=== PATIENT | female | born 1980 | race Caucasian/White ===

== ENCOUNTER 2021-04-06 22:11 | Emergency (ER) | payer OTHER ==
[~2021-04-06] VITALS: Ht 160 cm; Wt 98.3 kg
[2021-04-06] MEDS ORDERED: IV NORMAL SALINE 1,000ML 1,000 ML IV ONE (23:00)
--- NOTE | 2021-04-06 23:01 | PHYS DOC ---
Past History Additional Past Medical Histor: shalom, pre diabets, PTSD Past Surgical History: Cholecystectomy, Tubal ligation Additional Past Surgical Histo: carpal tunnel bialt, right leg surgery Alcohol Use: None General Adult EDM: Chief Complaint: SHORTNESS OF BREATH HPI: HPI: 41-year-old female presents with body aches, mild shortness of breath, a history of for COVID-19. She was fully vaccinated with the maternal vaccine. Her [id number] was just diagnosed with Covid. The patient has been around her. Patient has felt feverish at home but no fever in the ER. Review of Systems: Review of Systems: Constitutional: Fever, body aches. Eyes: Denies change in visual acuity HENT: Denies nasal congestion or sore throat Respiratory: shortness of breath Cardiovascular: Denies chest pain or edema GI: Denies abdominal pain, nausea, vomiting, bloody stools or diarrhea : Denies dysuria Musculoskeletal: Denies back pain or joint pain Integument: Denies rash Neurologic: Denies headache, focal weakness or sensory changes Endocrine: Denies polyuria or polydipsia Lymphatic: Denies swollen glands Psychiatric: Denies depression or anxiety Current Medications: Current Meds: Current Medications Medications (Trade) Dose Ordered Sig/Kathy Start Time Stop Time Status Last Admin Dose Admin Sodium Chloride 1,000 ml @ 1,000 mls/hr 1X ONCE 04/06/21 23:00 04/06/21 23:59 Allergies: Allergies: Allergies Coded Allergies Type Severity Reaction Last Updated Verified prednisone Allergy Unknown 04/06/21 Yes sulfamethoxazole Allergy Unknown 04/06/21 Yes trimethoprim Allergy Unknown 04/06/21 Yes Physical Exam: PE: Constitutional: Well developed, well nourished, morbidly obese, no acute distress, non-toxic appearance. [] HENT: Normocephalic, atraumatic, bilateral external ears normal, oropharynx moist, no oral exudates, nose normal. [] Eyes: PERRLA, EOMI, conjunctiva normal, no discharge. [] Neck: Normal range of motion, no tenderness, supple, no stridor. [] Cardiovascular: Heart rate regular rhythm, no murmur [] Lungs & Thorax: Bilateral breath sounds clear to auscultation [] Abdomen: Bowel sounds normal, soft, no tenderness, no masses, no pulsatile masses. [] Skin: Warm, dry, no erythema, no rash. [] Back: No tenderness, no CVA tenderness. [] Extremities: No tenderness, no cyanosis, no clubbing, ROM intact, no edema. [] Neurologic: Alert and oriented X 3, normal motor function, normal sensory function, no focal deficits noted. [] Psychologic: Affect normal, judgement normal, mood normal. [] Current Patient Data: Vital Signs: Vital Signs Date Time Temp Pulse Resp B/P (MAP) Pulse Ox O2 Delivery O2 Flow Rate FiO2 04/06/21 22:42 98.7 99 18 115/70 98 Room Air EKG: EKG: [] Radiology/Procedures: Radiology/Procedures: [] Impressions: INDICATION: Reason: SOB / Spl. Instructions: / History: COMPARISON: None. FINDINGS: Single view of chest obtained. No definite focal airspace consolidation. Left lung base is not well evaluated secondary to overlying cardiac silhouette obscuring. No definite consolidation elsewhere in the lungs. IMPRESSION: * No definite focal airspace consolidation Electronically signed by: Denise Moss MD (04/06/2021 11:43 PM) DESKTOP- [id number] DICTATED AND SIGNED BY: DENISE MOSS MD DATE: 04/06/212341 CC: LINDSAY BOBBY DO; KALEY SOLITARIO ~MTH0 0 Heart Score: C/O Chest Pain: N/A Risk Factors: Risk Factors: DM, Current or recent (<one month) smoker, HTN, HLP, family history of CAD, obesity. Risk Scores: Score 0 - 3: 2.5% MACE over next 6 weeks - Discharge Home Score 4 - 6: 20.3% MACE over next 6 weeks - Admit for Clinical Observation Score 7 - 10: 72.7% MACE over next 6 weeks - Early Invasive Strategies Course & Med Decision Making: Course & Med Decision Making Pertinent Labs and Imaging studies reviewed. (See chart for details) The patient's x-ray is negative for acute findings. Labs are unremarkable. The patient likely has COVID-19. I have advised supportive care and isolation from other people. She is stable for discharge at this time. If her condition worsens she will return to the emergency room. [] Dragon Disclaimer: Dragon Disclaimer: This electronic medical record was generated, in whole or in part, using a voice recognition dictation system. Departure Departure: Impression: Primary Impression: COVID-19 Disposition: 01 HOME / SELF CARE / HOMELESS Condition: STABLE Referrals: KALEY SOLITARIO (PCP) Additional Instructions: You have been tested for or diagnosed with COVID-19. It is an infection caused by a new type of coronavirus. COVID-19 will cause cold-like or mild flu symptoms in most. It can cause more severe symptoms like problems breathing in some. There is no treatment for COVID-19. The body will clear the infection over time. Self-care will help to ease discomfort. Steps to Take: Self-Care Rest as needed. Healthy habits may help you feel better. Steps include: Choose healthy foods including fruits and vegetables. Drink water throughout the day. Get plenty of sleep each night. If you smoke, try to quit. It may ease breathing. Avoid alcohol. Keep Others Healthy The virus can spread to others. Droplets are released every time you sneeze or cough. The droplets can get into the mouth, nose, or eyes of people near you and lead to infection. To lower the chances of spreading COVID-19 to others: Stay at home until your doctor has said it is safe to leave. If you tested positive this will mean staying isolated until both of the following are true: At least 7 days have passed since the start of illness. You are free of fever for at least 72 hours without the use of medicine. During this time: - Avoid public areas, events, or transportation. Do not return to work or school until your doctor has said it is safe to do so. - Call ahead if you need to go to a medical center. Let them know you may have COVID-19. It will help them guide you where to go. They may also ask you to wear a facemask when you come to the office. - If you call for emergency medical services, let them know you may have COVID- 19. While at home: - Try to avoid close contact with others. Stay about 6 feet away. - If possible, spend most of your time in a separate room from others. - Use a face mask if you will be in close contact with others such as sharing a room or vehicle. - Have someone wipe down common surfaces in the home. Use household cold press loader every day on areas like doorknobs, counters, or sinks. - Cough or sneeze into a tissue. Throw the tissue away right after use. If a tissue is not available, cough or sneeze into your elbow. - Wash your hands often. Wash them after sneezing or coughing. Use soap and water and wash for at least 20 seconds. Alcohol based hand fur cleaner can be used if soap and water is not available. - Do not prepare food for others. Avoid sharing personal items like forks, spoons, or toothbrushes. - Avoid close contact with pets while you are sick. There is no evidence of the virus passing to pets. This is a safety step until more is known about this virus. Isolation can be frustrating. Social interaction can help. Keep in touch with friends and family through phone and tech options. You can still interact with others in your home, just keep a safe distance of about 6 feet. Follow-up: Your doctors office will check in with you to see if there are any changes in your health. You may be asked to keep track of symptoms to share with them. They will also let you know when you are clear to be in public again. Problems to Look Out For: Contact your doctor if your recovery is not going as you expect. Get emergency care if you have problems such as: - Trouble breathing - Nonstop chest pain or pressure - Changes in awareness, confusion, or problems waking - Lips or face have bluish color - Worsening of symptoms If you think you have an emergency, call for emergency medical services right away. As taken from [facility] LINDSAY BOBBY DO Apr 06, 2021 23:01
[2021-04-06] MEDS ORDERED: KETOROLAC 15 MG/ML VIAL. IVP ONE (23:15)
[2021-04-06 23:42] LABS: CALCIUM 8.9 mg/dL (8.5-10.1); CREATININE 0.9 mg/dL (0.6-1.0); GFR 69.7; POTASSIUM 3.7 mmol/L (3.5-5.1)
--- NOTE | 2021-04-06 23:46 | RAD ---
INDICATION: Reason: SOB / Spl. Instructions: / History: COMPARISON: None. FINDINGS: Single view of chest obtained. No definite focal airspace consolidation. Left lung base is not well evaluated secondary to overlying cardiac silhouette obscuring. No definite consolidation elsewhere in the lungs. IMPRESSION: * No definite focal airspace consolidation Electronically signed by: Dayotn Moss MD (04/06/2021 11:43 PM) [id number]
[2021-04-06 23:50] LABS: ALBUMIN 3.4 g/dL (3.4-5.0); ALBUMIN/GLOBULIN RATIO 0.8 (1.0-1.7); TOTAL BILIRUBIN 0.3 mg/dL (0.2-1.0); TOTAL PROTEIN 7.8 g/dL (6.4-8.2)
[2021-04-07 00:16] LABS: BASO % 1 % (0-3); EOS # 0.1 x10^3/uL (0.0-0.7); EOS % 1 % (0-3); HEMATOCRIT 40.8 % (36.0-47.0); HEMOGLOBIN 14.1 g/dL (12.0-15.5); LYMPH # 1.2 x10^3/uL (1.0-4.8); LYMPH % 12 % (24-48); MEAN CORPUSCULAR HEMOGLOBIN 28 pg (25-35); MEAN CORPUSCULAR HGB CONC 35 g/dL (31-37); MEAN CORPUSCULAR VOLUME 80 fL (79-100); MONO # 0.4 x10^3/uL (0.0-1.1); MONO % 4 % (0-9); NEUT # 8.2 x10^3uL (1.8-7.7); NEUT % 83 % (31-73); PLATELET COUNT 105 x10^3/uL (140-400); RED BLOOD COUNT 5.08 x10^6/uL (3.50-5.40); RED CELL DISTRIBUTION WIDTH 13.7 % (11.5-14.5); WHITE BLOOD COUNT 9.9 x10^3/uL (4.0-11.0)
[2021-04-07 00:26] VITALS: BP 130/84
[2021-04-07 00:49] LABS: CLARITY,URINE CLEAR; COLOR,URINE YELLOW
[2021-04-07 00:50] LABS: BILIRUBIN,URINE NEG (NEG); GLUCOSE,URINE NEG (NEG); UROBILINOGEN,URINE 0.2 mg/dL (0.2 mg/dL)
[2021-04-07 00:51] LABS: BACTERIA,URINE FEW /HPF (0-FEW); NITRITE,URINE NEG (NEG); RBC,URINE OCC /HPF (0-2); SQUAMOUS EPITHELIAL CELL,UR OCC /LPF
== END 2021-04-07 00:40 | disposition home or self-care (01) ==
LOC: ER 22:11
DX: U07.1 COVID-19 (principal); Z88.8 Allergy status to other drugs, medicaments and biological substances; Z88.1 Allergy status to other antibiotic agents; Z88.2 Allergy status to sulfonamides
CPT/HCPCS: 36415; 71045; 80053; 81001; 85025; 87086; 96361; 96374; 99284; C9803; J1885; J7030; U0003

== ENCOUNTER 2021-07-01 21:07 | Emergency (ER) | payer SELFPAY ==
[~2021-07-01] VITALS: Ht 160 cm; Wt 96.6 kg
--- NOTE | 2021-07-01 21:40 | PHYS DOC ---
Past History Additional Past Medical Histor: shalom, pre diabets, PTSD (JOLEEN SMITH APRN) Past Surgical History: Cholecystectomy, Tubal ligation, Other Additional Past Surgical Histo: carpal tunnel bialt, right leg surgery (JOLEEN SMITH SPOT MACHINE OPERATOR) Alcohol Use: None Drug Use: Marijuana (JOLEEN SMITH APRN) General Adult EDM: Chief Complaint: DRUG ABUSE HPI: HPI: Patient is a 41-year-old female that presents today with back pain and not feeling well after eating a THC gummy. Patient states 30 minutes prior to arrival she had a gummy, she then had a hot flash with some low back pain and that since that time has not felt okay. Patient currently denies pain patient states she does not feel well. Patient states that she has not taken Gummies in the past. (JOLEEN SMITH APRN) Review of Systems: Review of Systems: Constitutional: Denies fever or chills Eyes: Denies change in visual acuity HENT: Denies nasal congestion or sore throat Respiratory: shortness of breath Cardiovascular: Denies chest pain or edema GI: Denies abdominal pain, nausea, vomiting, bloody stools or diarrhea : Denies dysuria Musculoskeletal: Denies back pain or joint pain Integument: Denies rash Neurologic: Denies headache, focal weakness or sensory changes Endocrine: Denies polyuria or polydipsia Lymphatic: Denies swollen glands Psychiatric: anxiety (JOLEEN SMITH APRN) Current Medications: Current Meds: levothyroxine Metformin Lexapro Buspar (JOLEEN SMITH APRN) Allergies: Allergies: Allergies Coded Allergies Type Severity Reaction Last Updated Verified prednisone Allergy Unknown 04/06/21 Yes sulfamethoxazole Allergy Unknown 04/06/21 Yes trimethoprim Allergy Unknown 04/06/21 Yes (JOLEEN SMITH SPOT MACHINE OPERATOR) Physical Exam: PE: Constitutional: Well developed, anxious [] HENT: Normocephalic, atraumatic, bilateral external ears normal, oropharynx moist, no oral exudates, nose normal. [] Eyes: pupil sluggish to react, equal round bilaterally, conjunctiva red, no discharge. [] Neck: Normal range of motion, no tenderness, supple, no stridor. [] Cardiovascular: tachycardic, no murmur [] Lungs & Thorax: Bilateral breath sounds clear to auscultation [] Abdomen: Bowel sounds normal, soft, no tenderness, no masses, no pulsatile masses. [] Skin: Warm, dry, no erythema, no rash. [] Back: No tenderness, no CVA tenderness. [] Extremities: No tenderness, no cyanosis, no clubbing, ROM intact, no edema. [] Neurologic: Alert and oriented X 3, normal motor function, normal sensory function, no focal deficits noted. [] Psychologic: Affect anxious, [] (JOLEEN SMITH APRN) Current Patient Data: Vital Signs: Vital Signs Date Time Temp Pulse Resp B/P (MAP) Pulse Ox O2 Delivery O2 Flow Rate FiO2 07/01/21 21:15 99.3 131 22 133/81 (98) 96 Room Air (JOLEEN SMITH APRN) EKG: EKG: EKG done at 2124 sinus tachycardia rate of 120-[address] Reese [] (JOLEEN SMITH SPOT MACHINE OPERATOR) Radiology/Procedures: Radiology/Procedures: [] (JOLEEN SMITH APRN) Heart Score: C/O Chest Pain: N/A Risk Factors: Risk Factors: DM, Current or recent (<one month) smoker, HTN, HLP, family history of CAD, obesity. Risk Scores: Score 0 - 3: 2.5% MACE over next 6 weeks - Discharge Home Score 4 - 6: 20.3% MACE over next 6 weeks - Admit for Clinical Observation Score 7 - 10: 72.7% MACE over next 6 weeks - Early Invasive Strategies (JOLEEN SMITH APRN) C/O Chest Pain: N/A HEART Score for Chest Pain: HEART Score for Chest Pain Response (Comments) Value History Moderately Suspicious 1 ECG Nonspecific Repolarizatio 1 Age < 45 0 Risk Factors 1 or 2 Risk Factors 1 Total 3 (MANUEL REESE MD) Course & Med Decision Making: Course & Med Decision Making Pertinent Labs and Imaging studies reviewed. (See chart for details) Patient placed on surveillance monitor per nursing staff sinus tachycardia no ectopy noted, patient appears very nervous. [address] Reese for checkup (JOLEEN SMITH APRN) Course & Med Decision Making See above charting for details by jese Smith change. Avoid further use of illicit drugs. Pressure increases. Follow-up primary care. Return if any concerns. Patient's symptoms improved requesting discharge after IV fluids. Impression: 1. Substance Abuse ( too many marijuana chewables/ gummies) (drug screen positive for narcotics and marijuana.) 2. Mild Leukocytosis 11.2 3. Mild Thrombocytopenia 129 (MANUEL REESE MD) Dragon Disclaimer: Dragon Disclaimer: This electronic medical record was generated, in whole or in part, using a voice recognition dictation system. (JOLEEN SMITH APRN) Departure Departure: Referrals: KALEY SOLITARIO (PCP) Attending Signature Attending Signature I have participated in the care of this patient and I have reviewed and agree with all pertinent clinical information above including history, exam, and recommendations. (MANUEL REESE MD) Attending Signature Attending Signature I have participated in the care of this patient and I have reviewed and agree with all pertinent clinical information above including history, exam, and recommendations. (MANUEL REESE MD) Attending Signature Attending Signature I have participated in the care of this patient and I have reviewed and agree wi th all pertinent clinical information above including history, exam, and recommendations. (MANUEL REESE MD) Dragon Disclaimer This chart was dictated in whole or in part using Voice Recognition software in a busy, high-work load, and often noisy Emergency Department environment. It may contain unintended and wholly unrecognized errors or omissions. (MANUEL REESE MD) JOLEEN SMITH APRN Jul 01, 2021 21:40 MANUEL REESE MD Jul 01, 2021 22:04
--- NOTE | 2021-07-01 21:40 | EKG ---
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
[2021-07-01 21:51] LABS: BASO # 0.1 x10^3/uL (0.0-0.2); BASO % 1 % (0-3); EOS # 0.3 x10^3/uL (0.0-0.7); EOS % 2 % (0-3); HEMATOCRIT 39.3 % (36.0-47.0); HEMOGLOBIN 13.1 g/dL (12.0-15.5); LYMPH # 4.6 x10^3/uL (1.0-4.8); LYMPH % 41 % (24-48); MEAN CORPUSCULAR HEMOGLOBIN 27 pg (25-35); MEAN CORPUSCULAR HGB CONC 33 g/dL (31-37); MEAN CORPUSCULAR VOLUME 82 fL (79-100); MONO # 0.6 x10^3/uL (0.0-1.1); MONO % 6 % (0-9); NEUT # 5.6 x10^3uL (1.8-7.7); NEUT % 50 % (31-73); PLATELET COUNT 129 x10^3/uL (140-400); RED CELL DISTRIBUTION WIDTH 13.2 % (11.5-14.5); WHITE BLOOD COUNT 11.2 x10^3/uL (4.0-11.0)
[2021-07-01] MEDS ORDERED: IV NORMAL SALINE 1,000ML 1,000 ML IV ONE (22:00)
[2021-07-01] MEDS ORDERED: MAGNESIUM HYDROXIDE 2,400 MG/30 ML ORAL.SUSP. PO ONE (22:00)
[2021-07-01 22:02] LABS: CALCIUM 8.9 mg/dL (8.5-10.1); CREATININE 0.8 mg/dL (0.6-1.0); GFR 79.9; POTASSIUM 3.7 mmol/L (3.5-5.1)
[2021-07-01 23:08] LABS: BARBITURATES NEG (NEG); BENZODIAZEPINES NEG (NEG); CANNABINOIDS POS (NEG); COCAINE NEG (NEG); METHADONE NEG (NEG); OPIATES POS (NEG); PHENCYCLIDINE NEG (NEG)
[2021-07-01 23:10] LABS: AMPHETAMINE/METHAMPHETAMINE NEG (NEG)
[2021-07-02] MEDS ORDERED: MAGNESIUM HYDROXIDE 2,400 MG/30 ML ORAL.SUSP. PO ONE
[2021-07-02 00:14] VITALS: BP 107/55
== END 2021-07-02 00:35 | disposition home or self-care (01) ==
LOC: ER 21:07
DX: M54.59 Other low back pain (principal); Z90.49 Acquired absence of other specified parts of digestive tract; Z98.51 Tubal ligation status; G56.03 Carpal tunnel syndrome, bilateral upper limbs
CPT/HCPCS: 36415; 80048; 80307; 85025; 93005; 96360; 99284; J7030; 99285-25

== ENCOUNTER 2021-08-31 01:17 | Emergency (ER) | payer OTHER ==
[~2021-08-31] VITALS: Ht 160 cm; Wt 97.5 kg
--- NOTE | 2021-08-31 01:21 | PHYS DOC ---
Past History Additional Past Medical Histor: shalom, pre diabets, PTSD Past Surgical History: Cholecystectomy, Tubal ligation, Other Additional Past Surgical Histo: carpal tunnel bialt, right leg surgery Alcohol Use: None Drug Use: Marijuana Adult General HPI HPI Patient is a 41-year-old female who presents with ear pain. States that just before coming in she felt some fluid running out of her ear looked at it was a little bit of blood. Denies any recent traumas, illnesses, fevers, cold/flu/Covid symptoms. States her did clean her ear vigorously yesterday with a Q-tip however though. Denies any fevers. Denies any chest pain, shortness of breath, abdominal pain, nausea, vomiting. Review of Systems Review of Systems Review of systems otherwise unremarkable except noted in HPI Allergies Allergies Allergies Coded Allergies Type Severity Reaction Last Updated Verified prednisone Allergy Intermediate 07/01/21 Yes strawberry Allergy Intermediate 07/01/21 Yes sulfamethoxazole Allergy Intermediate 07/01/21 Yes trimethoprim Allergy Intermediate 07/01/21 Yes Physical Exam Physical Exam Constitutional: Well developed, well nourished, no acute distress, non-toxic appearance. [] HENT: Normocephalic, atraumatic, bilateral external ears normal, bilateral tympanic membranes normal, patient has a tiny scratch about fdc down external auditory canal on anterior side that looks like it had a scab on it and had a pulled off. Oropharynx moist, no oral exudates, nose normal. [] Eyes: PERRLA, EOMI, conjunctiva normal, no discharge. [] Neck: Normal range of motion, no tenderness, supple, no stridor. [] Skin: Warm, dry, no erythema, no rash. [] Neurologic: Alert and oriented X 3, normal motor function, normal sensory function, no focal deficits noted. [] Psychologic: Affect normal, judgement normal, mood normal. [] EKG EKG [] Radiology/Procedures Radiology/Procedures [] Heart Score C/O Chest Pain: No Risk Factors: Risk Factors: DM, Current or recent (<one month) smoker, HTN, HLP, family history of CAD, obesity. Risk Scores: Risk Factors: DM, Current or recent (<one month) smoker, HTN, HLP, family history of CAD, obesity. Course & Med Decision Making Course & Med Decision Making Patient is a 41-year-old female who presents with ear pain Vital signs not concerning. Physical exam noted above. Patient denies need for pain medicine. Discussed all findings with family. Patient up-to-date on tetanus. Advised not to stick any objects in the ear and discussed proper cleaning techniques. Advise follow-up with primary care as needed. Gave return precautions to the ED. Patient grateful, verbalized understanding agree with plan of discharge. [] Dragon Disclaimer Dragon Disclaimer This electronic medical record was generated, in whole or in part, using a voice recognition dictation system. Departure Departure: Impression: Primary Impression: Ear pain Disposition: HOME / SELF CARE / HOMELESS Condition: GOOD Referrals: KALEY SOLITARIO (PCP) Patient Instructions: Carbamide Peroxide ear solution Additional Instructions: Thank you for coming into the emergency department tonight and allowing us to take care of you. Please read the attached information carefully go back over some of the things we discussed. You can take Tylenol and ibuprofen as needed. Please do not stick anything in your ear as we discussed and use an appropriate cleaning solution. Please follow-up with your primary care physician update on ED visit. Please come back to the ED with new or concerning symptoms as discussed VITALIY GUEVARA MD Aug 31, 2021 01:21
[2021-08-31 01:28] VITALS: BP 128/76
== END 2021-08-31 01:43 | disposition home or self-care (01) ==
LOC: ER 01:17
DX: H92.02 Otalgia, left ear (principal); Z91.018 Allergy to other foods; Z88.2 Allergy status to sulfonamides; Z88.1 Allergy status to other antibiotic agents; Z88.8 Allergy status to other drugs, medicaments and biological substances
CPT/HCPCS: 99282

== ENCOUNTER 2021-09-06 09:58 | Emergency (ER) | payer OTHER ==
[~2021-09-06] VITALS: Ht 160 cm; Wt 95.7 kg
[2021-09-06 10:09] VITALS: BP 133/89
[2021-09-06] MEDS ORDERED: TRAM50TA PO (10:22)
[2021-09-06] MEDS ORDERED: OFLO5DRO7 LEFT EAR (10:22)
--- NOTE | 2021-09-06 10:23 | PHYS DOC ---
Past History Additional Past Medical Histor: chronic ear infections (LAUREN REYES [employer] SYSTEMS SOFTWARE ENGINEER) Past Surgical History: No Surgical History Additional Past Surgical Histo: carpal tunnel bialt, right leg surgery (LAUREN REYES [employer] SYSTEMS SOFTWARE ENGINEER) Alcohol Use: None Drug Use: Marijuana (LAUREN REYES [employer] SYSTEMS SOFTWARE ENGINEER) Adult General Chief Complaint Chief Complaint: EARACHE/EAR PAIN [facility] HPI Patient is a 41-year-old female patient presented to the ED today complaining of 9 out of 10 throbbing intermittent left ear pain, symptoms began 6 days ago but got worse this morning. Patient denies any fever. Denies any coughing or congestion. She states she was seen earlier this week in the ED for left ear pain after the cleaned in with Qtip. (LAUREN REYES [employer] SYSTEMS SOFTWARE ENGINEER) Review of Systems Review of Systems Constitutional: Denies fever or chills [] Eyes: Denies change in visual acuity, redness, or eye pain [] HENT: Reports left ear pain. Denies nasal congestion or sore throat [] Respiratory: Denies cough or shortness of breath [] Cardiovascular: No additional information not addressed in HPI [] GI: Denies abdominal pain, nausea, vomiting, bloody stools or diarrhea [] : Denies dysuria or hematuria [] Musculoskeletal: Denies back pain or joint pain [] Integument: Denies rash or skin lesions [] Neurologic: Denies headache, focal weakness or sensory changes [] All other systems were reviewed and found to be within normal limits, except as documented in this note. (ERICLAUREN [employer] SYSTEMS SOFTWARE ENGINEER) Allergies Allergies Allergies Coded Allergies Type Severity Reaction Last Updated Verified prednisone Allergy Intermediate 09/06/21 Yes strawberry Allergy Intermediate 09/06/21 Yes sulfamethoxazole Allergy Intermediate 09/06/21 Yes trimethoprim Allergy Intermediate 09/06/21 Yes (ERICLAUREN [employer]S SOFTWARE ENGINEER) Physical Exam Physical Exam Constitutional: Well developed, well nourished, no acute distress, non-toxic appearance. [] HENT: Normocephalic, atraumatic, bilateral external ears normal, oropharynx moist, no oral exudates, nose normal. [] Left ear canal is erythematous and swollen, has 2 yellow blisters. Tragus is painful. No drainage. Eyes: PERRLA, EOMI, conjunctiva normal, no discharge. [] Neck: Normal range of motion, no tenderness, supple, no stridor. [] Cardiovascular:Heart rate regular rhythm, no murmur [] Lungs & Thorax: Bilateral breath sounds clear to auscultation [] Abdomen: Bowel sounds normal, soft, no tenderness, no masses, no pulsatile masses. [] Skin: Warm, dry, no erythema, no rash. [] Back: No tenderness, no CVA tenderness. [] Extremities: No tenderness, no cyanosis, no clubbing, ROM intact, no edema. [] Neurologic: Alert and oriented X 3, normal motor function, normal sensory function, no focal deficits noted. [] Psychologic: Tearful (LAUREN REYES APRN) Current Patient Data Vital Signs Vital Signs Date Time Temp Pulse Resp B/P (MAP) Pulse Ox O2 Delivery O2 Flow Rate FiO2 09/06/21 10:09 97.5 92 18 133/89 (104) 97 Room Air (LAUREN REYES APRN) EKG EKG [] (LAUREN REYES APRN) Radiology/Procedures Radiology/Procedures [] (LAUREN REYES APRN) Heart Score C/O Chest Pain: N/A Risk Factors: Risk Factors: DM, Current or recent (<one month) smoker, HTN, HLP, family history of CAD, obesity. Risk Scores: Risk Factors: DM, Current or recent (<one month) smoker, HTN, HLP, family history of CAD, obesity. (LAUREN REYES APRN) Course & Med Decision Making Course & Med Decision Making Pertinent Labs and Imaging studies reviewed. (See chart for details) This is a 41-year-old female patient with otitis externa. Discharged with ofloxacin. Follow-up with ENT in 1 to 2 weeks. (LAUREN REYES APRN) Dragon Disclaimer Dragon Disclaimer This electronic medical record was generated, in whole or in part, using a voice recognition dictation system. (LAUREN REYES APRN) Attending Co-Sign The patient was seen and interviewed as well as examined at the bedside. The chart was reviewed. The case was discussed. Agree with the plan of care. (LINDSAY BOBBY DO) Departure Departure: Impression: Primary Impression: Otitis externa of left ear Disposition: HOME / SELF CARE / HOMELESS Condition: STABLE Referrals: KALEY SOLITARIO (PCP) Please follow up with Dr. Yanique Moss, ENT in the next 1 to 2 weeks. Address: [address] [place] [address] [place] [address] Patient Instructions: Otitis Externa, [id number] Additional Instructions: You were evaluated in the emergency room for ear pain. Use the prescribed medication as ordered. Please follow up with Dr. Yanique Moss, ENT in the next 1 to 2 weeks. Address: [address] [place] [address] [address] [facility], [place] [address] Scripts Tramadol Hcl (TRAMADOL HCL) 50 Mg Tablet 50 MG PO PRN Q6HRS PRN for PAIN, #14 TAB Prov: LAUREN REYES APRN 09/06/21 Ofloxacin (OFLOXACIN) 5 Ml Drops 5 DROP LEFT EAR BID, #5 ML 0 Refills Prov: LAUREN REYES APRN 09/06/21 Problem Qualifiers Primary Impression: Otitis externa of left ear Otitis externa type: unspecified type Chronicity: acute Qualified Codes: H60.502 - Unspecified acute noninfective otitis externa, left ear LAUREN REYES APRN Sep 06, 2021 10:23 LINDSAY BOBBY DO Sep 06, 2021 14:53
== END 2021-09-06 10:42 | disposition home or self-care (01) ==
LOC: ER 09:58
DX: H60.502 Unspecified acute noninfective otitis externa, left ear (principal); Z88.8 Allergy status to other drugs, medicaments and biological substances; Z88.2 Allergy status to sulfonamides; Z88.1 Allergy status to other antibiotic agents; Z91.018 Allergy to other foods
CPT/HCPCS: 99283

== ENCOUNTER 2021-12-28 22:30 | Emergency (ER) | payer SELFPAY ==
[~2021-12-28] VITALS: Ht 160 cm; Wt 95.7 kg
[~2021-12-28 22:30] MED LIST: OFLO5DRO7 LEFT EAR; TRAM50TA PO
--- NOTE | 2021-12-28 23:06 | PHYS DOC ---
Past History Additional Past Medical Histor: chronic ear infections Past Surgical History: No Surgical History Additional Past Surgical Histo: carpal tunnel bialt, right leg surgery Alcohol Use: None Drug Use: Marijuana General Adult EDM: Chief Complaint: COUGH HPI: HPI: 41-year-old female presents with cough, body aches, chills for the last couple of days. She has not measured a fever at home. Patient was vaccinated against COVID-19 but did not get the booster. She has not had COVID-19 as far she knows. Her household had COVID-19 in September 2021 that she did not get it at that time. She also has a very sore throat. She has no other complaints this time. Review of Systems: Review of Systems: Constitutional: Denies fever or chills. Body aches, fatigue Eyes: Denies change in visual acuity HENT: Denies nasal congestion or sore throat Respiratory: Cough without shortness of breath Cardiovascular: Denies chest pain or edema GI: Denies abdominal pain, nausea, vomiting, bloody stools or diarrhea : Denies dysuria Musculoskeletal: Denies back pain or joint pain Integument: Denies rash Neurologic: Denies headache, focal weakness or sensory changes Endocrine: Denies polyuria or polydipsia Lymphatic: Denies swollen glands Psychiatric: Denies depression or anxiety Allergies: Allergies: Allergies Coded Allergies Type Severity Reaction Last Updated Verified prednisone Allergy Intermediate 12/28/21 Yes strawberry Allergy Intermediate 12/28/21 Yes sulfamethoxazole Allergy Intermediate 12/28/21 Yes trimethoprim Allergy Intermediate 12/28/21 Yes Physical Exam: PE: Constitutional: Well developed, well nourished, obese, no acute distress, non- toxic appearance. [] HENT: Normocephalic, atraumatic, bilateral external ears normal, oropharynx moist, no oral exudates, nose normal. [] Eyes: PERRLA, EOMI, conjunctiva normal, no discharge. [] Neck: Normal range of motion, no tenderness, supple, no stridor. [] Cardiovascular: Heart rate regular rhythm, no murmur [] Lungs & Thorax: Bilateral breath sounds clear to auscultation [] Abdomen: Bowel sounds normal, soft, no tenderness, no masses, no pulsatile masses. [] Skin: Warm, dry, no erythema, no rash. [] Back: No tenderness, no CVA tenderness. [] Extremities: No tenderness, no cyanosis, no clubbing, ROM intact, no edema. [] Neurologic: Alert and oriented X 3, normal motor function, normal sensory function, no focal deficits noted. [] Psychologic: Affect normal, judgement normal, mood normal. [] EKG: EKG: [] Radiology/Procedures: Radiology/Procedures: [] Heart Score: C/O Chest Pain: N/A Risk Factors: Risk Factors: DM, Current or recent (<one month) smoker, HTN, HLP, family history of CAD, obesity. Risk Scores: Score 0 - 3: 2.5% MACE over next 6 weeks - Discharge Home Score 4 - 6: 20.3% MACE over next 6 weeks - Admit for Clinical Observation Score 7 - 10: 72.7% MACE over next 6 weeks - Early Invasive Strategies Course & Med Decision Making: Course & Med Decision Making Pertinent Labs and Imaging studies reviewed. (See chart for details) The patient is negative for strep, Covid, influenza. Chest x-ray is negative for acute findings. This is likely another viral URI with cough. I have advised supportive care. She is stable for discharge at this time. [] Dragon Disclaimer: Dragon Disclaimer: This electronic medical record was generated, in whole or in part, using a voice recognition dictation system. Departure Departure: Impression: Primary Impression: Viral URI with cough Disposition: HOME / SELF CARE / HOMELESS Condition: STABLE Referrals: KALEY SOLITARIO (PCP) Patient Instructions: Upper Respiratory Infection, Adult, [id number] LINDSAY BOBBY DO Dec 28, 2021 23:06
--- NOTE | 2021-12-28 23:27 | RAD ---
Exam: Chest one view INDICATION: Cough TECHNIQUE: Frontal view of the chest Comparisons: 04/06/2021 FINDINGS: The cardiomediastinal silhouette and pulmonary vessels are within normal limits. The lung and pleural spaces are clear. IMPRESSION: No acute cardiopulmonary process. Electronically signed by: Chris Ashley MD (12/28/2021 11:25 PM) [email or web address]
[2021-12-29 00:10] LABS: INFLUENZA A PATIENT NEGATIVE (NEGATIVE); INFLUENZA B PATIENT NEGATIVE (NEGATIVE)
[2021-12-29 00:29] VITALS: BP 128/81
== END 2021-12-29 00:31 | disposition home or self-care (01) ==
LOC: ER 22:30
DX: J06.9 Acute upper respiratory infection, unspecified (principal); Z20.822 Contact with and (suspected) exposure to COVID-19; Z88.8 Allergy status to other drugs, medicaments and biological substances; Z88.1 Allergy status to other antibiotic agents; Z88.2 Allergy status to sulfonamides; Z91.018 Allergy to other foods
CPT/HCPCS: 71045; 87070; 87428; 87880; 99284